=== PATIENT | male | born 1940 | race Caucasian/White ===

== ENCOUNTER 2019-12-25 13:35 | Outpatient (CLI) | payer MEDICARE, SELFPAY ==
[2019-12-25 15:03] LABS: Potassium 5.8 mmol/L (3.5-5.1)
== END 2019-12-25 13:36 | disposition home or self-care (01) ==
LOC: CHSLAB 13:40
PROVIDERS: PCP Family Medicine; Visit Provider Family Medicine
DX: E87.5 Hyperkalemia (principal)
CPT/HCPCS: 36415; 84132

== ENCOUNTER 2020-03-24 10:51 | Outpatient (RCR) | payer MEDICARE, SELFPAY ==
--- NOTE | 2020-03-24 11:29 | PTOPEVAL ---
Thank you for referring Kenneth Miles to [facility]. Please review, sign, date and return this plan of care OPHELIA. I agree with and certify that the following plan of care is medically necessary. Referring Physician Date Admitting Provider: Attending Provider: PHYSICIAN NOT ON STAFF Referring Provider: *PT Outpatient Evaluation Start: 03/24/20 11:02 Freq: Status: Active Protocol: Document 03/24/20 11:04 HUDSON (Rec: 03/24/20 11:29 [email or web address] [id number]) Therapy Assessment Status Assessment Status Assessment Status Evaluation Evaluation Information Problem Subjective Information Pt. reports that he had fallen Query Text:As Reported By Patient/ one month ago. He reports Family that he has been doing HH therapy since his fall. He reports that he is getting stronger, but still feels that he is weak. He reports that he still has pain with lifting the left l.e., which he did injure during his fall. He reports that his goal for therpay is to improve his strength and endurance. Prior Level of Function Activity Level (Last 3 Months) Occupation retired Hand Dominance Right Activity of Daily Living Ability Independent Indoor/Home Mobility Independent Community Mobility Independent Stairs Ability Independent Functional Cognition (Planning, Shopping Needs Some Help , Taking Medications) Cooking Yes Cleaning No Laundry No Shopping Yes Driving Yes Pain Assessment Pain Scale Pain Scale Used Numeric (1 - 10) Self Report Pain Assessment Left Leg(s) Reported Pain Level 2 Pain Score Pain Score 2: Self Report Lower Extremity Muscle Strength Testing General Lower Extremity Strength Gross Lower Extremity Strength right hip flexion 4+/5, left hip flexion 4/5, right hip abduction 4/5, left hip abduction 3-/5, right knee flexion 5/5, left knee flexion 4/5, right knee extension 5/5 , left knee extension 4+/5, right ankle dorsiflexion 5/5, left ankle dorsiflexion 4-/5 Balance Assessment Tinetti Balance Assessment Sitting Balance Steady, safe Ab
--- NOTE | 2020-04-21 06:45 | PCPTNOTE ---
Pt. contacted the clinic on 04/20/20 and stated that he cannot return to therapy at this time due to developed complications with COPD. He reports that he will continue with exercise. Pt. will be discharged from our care at this time.
== END 2020-04-08 10:32 | disposition home or self-care (01) ==
LOC: CHSPT 10:51
DX: Z74.09 Other reduced mobility (principal)
CPT/HCPCS: 97110; 97112; 97161

== ENCOUNTER 2021-08-03 07:49 | Outpatient (CLI) | payer MEDICARE, SELFPAY ==
--- NOTE | ~2021-08-03 | XR_ITS ---
EXAMINATION: NM bone 3 phase, XR foot RT min 3V DATE: 08/03/2021 11:55 INDICATION: Osteomyelitis at the right second toe TECHNIQUE: 1. 26.16 mCi Tc-99m HDP by intravenous route. Scintigrams of the bilateral feet and ankles were obta ined in angiographic, blood pool, and delayed phases. 2. AP, lateral and 2 oblique views of the right foot were obtained. COMPARISON: None. FINDINGS: There is matched 3 phase uptake at the distal phalanx of the right second toe consistent with osteomy elitis. On the corresponding radiographs there is erosion of the tuft and distal phalanx of the right second distal phalanx. 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 Similar though less intense uptake seen on the immediate and delayed images at t he left midfoot. No associated hyperemia at these locations on the immediate angiographic phase image s to suggest infection, fracture or other acute osseous abnormality at these locations. Additional mi ld likely degenerative activity seen only on the delayed images at the bilateral first metatarsophala ngeal joints with mild facet osteoarthritis at the right first metatarsophalangeal joint on the plain radiographs. IMPRESSION: 1. Osteomyelitis with increased three-phase uptake and associated osteolysis of the tuft of the righ t second distal phalanx. 2. 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 Reviewed, dictated and finalized at location A. IMPRESSION: 1. Osteomyelitis with increased three-phase uptake and associated osteolysis o f the tuft of the right second distal phalanx. 2. 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
== END 2021-08-03 07:50 | disposition home or self-care (01) ==
PROVIDERS: PCP Family Medicine; Visit Provider Podiatrist Foot & Ankle Surgery
DX: R93.7 Abnormal findings on diagnostic imaging of other parts of musculoskeletal system (principal); M86.9 Osteomyelitis, unspecified
CPT/HCPCS: 73630; 78315; A9561

== ENCOUNTER 2021-08-08 10:47 | Outpatient (CLI) | payer MEDICARE, SELFPAY ==
[2021-08-08 11:02] LABS: Basophils Absolute Auto 0.07 K/mm3 (0.00-0.10); Basophils Percent Auto 0.8 % (0.0-1.0); Eosinophils Absolute Auto 0.34 K/mm3 (0.02-0.50); Eosinophils Percent Auto 3.8 % (1.0-6.0); Immature Granulocyte Absolute 0.08 K/mm3 (0.00-0.00); Immature Granulocyte Percent A 0.9 % (0.0-0.0); Lymphocytes Absolute Auto 1.85 K/mm3 (1.10-4.50); Lymphocytes Percent Auto 20.6 % (18.0-42.0); Mean Corpuscular HGB Conc 32.7 g/dL (32.0-36.0); Mean Corpuscular Hemoglobin 30.8 pg (27.0-31.0); Mean Corpuscular Volume 94.2 fL (78.0-102.0); Mean Platelet Volume 11.4 fl (8.7-11.0); Monocytes Absolute Auto 0.88 K/mm3 (0.10-0.90); Monocytes Percent Auto 9.8 % (2.0-11.0); Neutrophils Absolute Auto 5.8 K/mm3 (1.7-7.2); Neutrophils Percent Auto 64.1 % (50.0-70.0); Platelet Count Result 186 K/mm3 (150-420); Red Blood Count 5.52 M/mm3 (4.70-6.10); Red Cell Distribution Width 14.6 % (11.6-14.4)
[2021-08-08 12:30] LABS: Anion Gap 8 mmol/L (8-16); Blood Urea Nitrogen 22 mg/dL (7-18); Calcium 9.3 mg/dL (8.5-10.1); Carbon Dioxide 32 mmol/L (21-32); Chloride 104 mmol/L (98-108); Estimated Glomerular Filt Rate > 60; Glucose 110 mg/dL (70-99); Osmolality Calculated 302 mOsm/kg (285-295); Potassium 5.1 mmol/L (3.5-5.1); Sodium 144 mmol/L (136-145)
== END 2021-08-08 10:48 | disposition home or self-care (01) ==
LOC: CHSLAB 10:50
PROVIDERS: PCP Family Medicine; Visit Provider Podiatrist Foot & Ankle Surgery
DX: Z01.818 Encounter for other preprocedural examination (principal)
CPT/HCPCS: 36415; 80048; 85025